=== PATIENT | female | born 1960 | race Caucasian/White ===

== ENCOUNTER → 2017-02-16 | Outpatient (CLI) | payer OTHER | LOC: FIMAGING 09:53 | PROVIDERS: ATTEND Obstetrics & Gynecology | DX: Z12.31 Encounter for screening mammogram for malignant neoplasm of breast (principal) | CPT/HCPCS: G0202 ==

== ENCOUNTER 2017-05-22 23:42 | Emergency (ER) | payer OTHER ==
[2017-05-22 23:46] VITALS: TEMP 98.4
--- NOTE | 2017-05-23 00:18 | CPEKG ---
Heart Rate: 89 RR Interval: 674 P-R Interval: 196 QRSD Interval: 74 QT Interval: 296 QTC Interval: 361 P [place]: 57 QRS [place]: 65 T Wave [place]: 234 EKG Severity - ABNORMAL ECG - EKG Impression: SINUS RHYTHM EKG Impression: VENTRICULAR BIGEMINY EKG Impression: ABNRM R PROG, CONSIDER ASMI OR LEAD PLACEMENT Electronically Signed By: Joe Blair 23-May-2017 07:08:42
[2017-05-23 00:39] LABS: ANION GAP 10 mEq/L (8-16); CALCIUM 10.1 mg/dL (8.5-10.4); CARBON DIOXIDE 27 mEq/l (22-31); CHLORIDE 103 mEq/L (97-110); CREATININE 0.8 mg/dL (0.6-1.0); GLOMERULAR FILTRATION RATE > 60; GLUCOSE 114 mg/dL (70-100); POTASSIUM 3.9 mEq/L (3.5-5.2); SODIUM 140 mEq/L (134-144)
[2017-05-23 00:43] LABS: % IMMATURE GRANULYOCYTES 0.3 % (0.0-1.1); ABSOLUTE IMMATURE GRANULOCYTES 0.02 10^3/uL (0.00-0.10); ADD DIFF? NO; ADD MORPH? NO; ADD SCAN? NO; ATYPICAL LYMPHOCYTE FLAG 10 (0-99); FRAGMENT RBC FLAG 0 (0-99); HEMATOCRIT 39.8 % (38.0-47.0); HEMOGLOBIN 14.2 g/dL (12.6-16.3); LEFT SHIFT FLG 0 (0-99); LIPEMIA HEMOLYSIS FLAG 90 (0-99); MEAN CELL HEMOGLOBIN 31.6 pg (27.9-34.1); MEAN CELL HEMOGLOBIN CONCENTR. 35.7 g/dL (32.4-36.7); MEAN CELL VOLUME 88.6 fL (81.5-99.8); MEAN PLATELET VOLUME 10.1 fL (8.7-11.7); PLATELET CLUMPS FLAG 0 (0-99); PLATELET COUNT 234 10^3/uL (150-400); RED BLOOD CELL COUNT 4.49 10^6/uL (4.18-5.33)
--- NOTE | 2017-05-23 01:07 | EDPHY ---
H & P Stated Complaint: rapid HR Time Seen by Provider: 05/23/17 00:02 HPI/ROS: Chief Complaint: Palpitations HPI: 56-year-old woman was at her OBGYN today. Her doctor listen to her heart noted an irregular heartbeat and informed the patient that she needed to follow up on this. This evening the patient is lying bed and noted that her heart was beating irregularly and seemed to be beating very fast. She has not have any chest pain or shortness of breath. Not aware of irregular heartbeat in the past. No recent travel. No leg pain or swelling. No chest pain or shortness of breath. No lightheadedness or fainting. ROS: 10 point Review of Systems is negative except as noted in the HPI. PMH: Denies Social History: No smoking, occasional alcohol, occasional marijuana, she drinks about 2 caffeinated beverages a day Family History: non-contributory Physical Exam: Gen: Awake, Alert, No Distress HEENT: Nose: no rhinorrhea Eyes: PERRLA, EOMI Mouth: Moist mucosa Neck: Supple, no JVD Chest: nontender, lungs clear to auscultation Heart: S1, S2 normal, no murmur, and occasional early beat Abd: Soft, non-tender, no guarding Back: no CVA tenderness, no midline tenderness Ext: no edema, non-tender Skin: no rash Neuro: CN II-XII intact, Sensation grossly intact, Strength 5/5 in bilateral upper and lower extremities - Personal History LMP (Females 10-55): IUD In Place Current Tetanus/Diphtheria Vaccine: Yes Current Tetanus Diphtheria and Acellular Pertussis (TDAP): Yes - Medical/Surgical History Hx Asthma: No Hx Chronic Respiratory Disease: No Hx Diabetes: No Hx Cardiac Disease: No Hx Renal Disease: No Hx Cirrhosis: No Hx Alcoholism: No Hx HIV/AIDS: No Hx Splenectomy or Spleen Trauma: No - Social History Smoking Status: Never smoked Constitutional: Initial Vital Signs Temperature (C) 36.9 C 05/22/17 23:44 Heart Rate 54 L 05/22/17 23:44 Respiratory Rate 16 05/22/17 23:44 Blood Pressure 132/60 H 05/22/17 23:44 O2 Sat (%) 97 05/22/17 23:44 O2 Delivery Mode Room Air Allergies/Adverse Reactions: No Known Allergies Allergy (Unverified 05/22/17 23:46) Medical Decision Making - Diagnostics EKG Interpretation: ECG time 12:16 zero sixteen a.m.. Sinus rhythm with a rate of 89. There frequent PVCs. There is abnormal R-wave progression. No acute ST or T-wave changes. Otherwise normal intervals. ED Course/Re-evaluation: Patient's electrolytes are normal. She has continued to have some frequent PVCs on her rhythm strip. She is not in bigeminy. Electrolytes are normal. She is otherwise without symptoms. Will discharge with referral for outpatient follow-up with Cardiology. I have recommended that she discontinue caffeine. - Data Points Laboratory Results: Laboratory Results 05/23/17 00:15 05/23/17 00:15 05/23/17 05/23/17 00:15 00:15 WBC 7.16 10^3/uL 10^3/uL (3.80-9.50) RBC 4.49 10^6/uL 10^6/uL (4.18-5.33) Hgb 14.2 g/dL g/dL (12.6-16.3) Hct 39.8 % % (38.0-47.0) MCV 88.6 fL fL (81.5-99.8) MCH 31.6 pg pg (27.9-34.1) MCHC 35.7 g/dL g/dL (32.4-36.7) RDW 13.0 % % (11.5-15.2) Plt Count 234 10^3/uL 10^3/uL (150-400) MPV 10.1 fL fL (8.7-11.7) Neut % (Auto) 51.4 % % (39.3-74.2) Lymph % (Auto) 34.8 % % (15.0-45.0) [place] % (Auto) 7.8 % % (4.5-13.0) Eos % (Auto) 5.0 % % (0.6-7.6) Baso % (Auto) 0.7 % % (0.3-1.7) Nucleat RBC Rel Count 0.0 % % (0.0-0.2) Absolute Neuts (auto) 3.68 10^3/uL 10^3/uL (1.70-6.50) Absolute Lymphs (auto) 2.49 10^3/uL 10^3/uL (1.00-3.00) Absolute Monos (auto) 0.56 10^3/uL 10^3/uL (0.30-0.80) Absolute Eos (auto) 0.36 10^3/uL 10^3/uL (0.03-0.40) Absolute Basos (auto) 0.05 10^3/uL 10^3/uL (0.02-0.10) Absolute Nucleated RBC 0.00 10^3/uL 10^3/uL (0-0.01) Immature Gran % 0.3 % % (0.0-1.1) Immature Gran # 0.02 10^3/uL 10^3/uL (0.00-0.10) Sodium 140 mEq/L mEq/L (134-144) Potassium 3.9 mEq/L mEq/L (3.5-5.2) Chloride 103 mEq/L mEq/L (97-110) Carbon Dioxide 27 mEq/l mEq/l (22-31) Anion Gap 10 mEq/L mEq/L (8-16) BUN 14 mg/dL mg/dL (7-23) Creatinine 0.8 mg/dL mg/dL (0.6-1.0) Estimated GFR > 60 Glucose 114 mg/dL H mg/dL (70-100) Calcium 10.1 mg/dL mg/dL (8.5-10.4) Departure - Departure Disposition: Home, Routine, Self-Care Clinical Impression: PVCs (premature ventricular contractions) Condition: Good Instructions: Premature Ventricular Contractions (ED) Additional Instructions: Follow up with Cardiology in 3-4 days. Please abstain from caffeine for the next several days. Return to the emergency department for chest pain, lightheadedness or fainting, shortness of breath, or any other concerns. Referrals: Vane Ruff MD [Primary Care Provider] - As per Instructions Yuriy Fernandez MD [Medical Doctor] - As per Instructions
[2017-05-23 01:35] VITALS: BP 109/80; PULSE 77; RESP 17; O2SAT 99
== END 2017-05-23 01:34 | disposition home or self-care (01) ==
DX: I49.3 Ventricular premature depolarization (principal)

== ENCOUNTER → 2017-07-30 | Outpatient (CLI) | payer OTHER | LOC: FIMAGING 13:55 | PROVIDERS: ATTEND Obstetrics & Gynecology | DX: Z13.820 Encounter for screening for osteoporosis (principal); N95.9 Unspecified menopausal and perimenopausal disorder; Z82.62 Family history of osteoporosis ==